=== PATIENT | female | born 1935 | race Caucasian/White ===

== ENCOUNTER 2020-07-27 13:03 | Outpatient (CLI) | payer MEDICARE ==
[~2020-07-27 13:03] MED LIST: RANI-467 PO
== END 2020-07-27 23:59 | disposition home or self-care (01) ==
LOC: CVU 13:03 → RAD 23:59
PROVIDERS: ATTEND Family Medicine
DX: I08.0 Rheumatic disorders of both mitral and aortic valves (principal); I12.9 Hypertensive chronic kidney disease with stage 1 through stage 4 chronic kidney disease, or unspecified chronic kidney disease; N18.3 Chronic kidney disease, stage 3 (moderate); M47.816 Spondylosis without myelopathy or radiculopathy, lumbar region; M25.551 Pain in right hip; E03.8 Other specified hypothyroidism; R60.0 Localized edema; R10.9 Unspecified abdominal pain
CPT/HCPCS: 74022; 93306; 93922